=== PATIENT | male | born 1955 | race Caucasian/White ===

== ENCOUNTER 2022-01-22 17:16 | Emergency (ER) | payer MEDICARE ==
[~2022-01-22] VITALS: Ht 160 cm; Wt 84.8 kg
[2022-01-22 17:41] VITALS: BP 207/148
--- NOTE | 2022-01-22 18:05 | NUR ---
66/M WITH C/O URINE RETENTION TODAY. PATIENT REPORTS HX OF PROSTATE CANCER AND STATES HE HAD A PERES IN PLACE X1 MONTH. STATES HE TOLD HIS UROLOGIST TO HAVE IT REMOVED AND HAS RETAINED URINE SINCE. PATIENT REPORTS 10/10 PAIN AND STATES ABDOMEN IS TENDER TO TOUCH. PATIENT DENIES N/V/D, FEVERS, CHILLS, PATIENT IS DIAPHORETIC UPON ARRIVAL TO ED.
--- NOTE | 2022-01-22 18:31 | NUR ---
Patient discharged with v/s stable. Written and verbal after care instructions ABOUT ACUTE URINARY RETENTION given and explained. Patient verbalized understanding. Ambulatory with steady gait. All questions addressed prior to discharge. Advised to follow up with PMD.
== END 2022-01-22 18:31 | disposition home or self-care (01) ==
LOC: MED 17:16
DX: R33.9 Retention of urine, unspecified (principal); Z85.46 Personal history of malignant neoplasm of prostate
CPT/HCPCS: 51702; 99284

== ENCOUNTER 2022-04-04 05:59 | Emergency (ER) | payer MEDICARE, OTHER ==
[~2022-04-04] VITALS: Ht 160 cm; Wt 89.4 kg
[2022-04-04 06:20] VITALS: BP 145/95
[2022-04-04] MEDS ORDERED: HYDROcodone/APAP 5/325 MG 1 TAB TAB PO ONE (07:05)
--- NOTE | 2022-04-04 07:48 | NUR ---
PT AMBULATED TO BED 2 WITH STEADY GAIT
--- NOTE | 2022-04-04 07:48 | NUR ---
NO URINE NOTED IN LEG BAG
[2022-04-04 08:13] LABS: BASOPHILS # (AUTO) 0.1 K/uL (0.00-0.22); BASOPHILS % (AUTO) 1.2 % (0.0-2.0); EOSINOPHILS # (AUTO) 0.6 K/uL (0-0.4); EOSINOPHILS % (AUTO) 5.8 % (0.0-4.0); HEMATOCRIT 45.6 % (36-52); HEMOGLOBIN 15.6 g/dL (12.0-18.0); LYMPHOCYTES # (AUTO) 2.5 K/uL (2.0-11.5); LYMPHOCYTES % (AUTO) 24.3 % (20.5-51.1); MEAN CORPUSCULAR HEMOGLOBIN 31 pg (27-31); MEAN CORPUSCULAR HGB CONC 34 g/dL (33-37); MEAN CORPUSCULAR VOLUME 91.7 fL (80-94); MONOCYTES # (AUTO) 1.2 K/uL (0.8-1.0); NEUTROPHILS % (AUTO) 57.7 % (42.2-75.2); PLATELET COUNT (AUTO) 482 K/uL (140-450); RED BLOOD CELL COUNT(AUTO) 4.97 MIL/uL (4.20-6.10); WHITE BLOOD COUNT (AUTO) 10.5 K/uL (4.8-10.8)
[2022-04-04 08:21] LABS: ALBUMIN 3.6 g/dL (3.4-5.0); ANION GAP 14.7 (8-16); CARBON DIOXIDE 26.3 mmol/L (21-32); TOTAL BILIRUBIN 0.4 mg/dL (0.0-1.0)
--- NOTE | 2022-04-04 08:27 | NUR ---
66YR OLD MALE BIB SELF C/O PENILE PAIN. PT HAD A LEG PERES CATH PLACED 2DAYS AGO. S/P PROSTATE SURGERY PROSTATE CA. PAIN LEVEL 10/10 . URINE RED CHELI HAZY. URINE DIP COLLECTED AND URINE SENT TO LAB. SURGERY 2 WEEKS AGO ON PROSTATE. PT IS A&OX4 BELARUSIAN SPEAKING. SKIN WARM PINK AND DRY. HOB ELEVATED. SIDE RAILS UP X2. BED AT LOWEST POSITION NKDA HTN DM PROSTATE CA
--- NOTE | 2022-04-04 09:31 | NUR ---
REPLACEMENT OF PERES CATH COMPLETED. 18FR COUDE CATH. PT TOLERATED WELL.
--- NOTE | 2022-04-04 09:40 | NUR ---
SECOND URINE SAMPLE COLLECTED AND SENT TO LAB
[2022-04-04 09:53] LABS: APPEARANCE,URINE CLOUDY (CLEAR); COLOR,URINE BLOODY (YELLOW)
[2022-04-04 09:54] LABS: BILIRUBIN,URINE 1+ (NEGATIVE); BLOOD, URINE 4+ (NEGATIVE); UGLUCOSE NEGATIVE (NEGATIVE)
[2022-04-04] MEDS ORDERED: MORPHINE SULFATE 4 MG/ML SYR IM ONE (10:10)
[2022-04-04 10:12] LABS: RBC,URINE >100 /HPF (0-5); WBC,URINE 20-60 /HPF (0-5)
[2022-04-04 10:13] LABS: LEUKOCYTE ESTERASE ,URINE 3+ (NEGATIVE); NITRITE, URINE POSITIVE (NEGATIVE)
--- NOTE | 2022-04-04 10:55 | NUR ---
PT PAIN LEVEL 0/10. PT IS RESTING IN BED. URINE EMPTY FROM PERES CATH. RESP EVEN AND UNLABORED. HOB ELEVATED. BED AT LOWEST POSITION.
[2022-04-04] MEDS ORDERED: cefTRIAXone 1,000 MG VIAL ONE (11:10)
[2022-04-04] MEDS ORDERED: CEPH-588 PO (11:30)
[2022-04-04 12:00] VITALS: BP 147/91
--- NOTE | 2022-04-04 12:00 | NUR ---
Note [email or web address] in EDM - 04/04/22 at 1229 by GARCIAPM Patient discharged with v/s stable. Written and verbal after care instructions given and explained. Patient alert, oriented and verbalized understanding of instructions. Ambulatory with steady gait. All questions addressed prior to discharge. ID band removed. Patient advised to follow up with PMD. Rx of KEFLEX given. Patient educated on indication of medication including possible reaction and side effects. Opportunity to ask questions provided and answered.
--- NOTE | 2022-04-04 12:36 | NUR ---
Chart checked and completed. The patient's care was reviewed and supervised by Shea Prieto RN.
== END 2022-04-04 12:00 | disposition home or self-care (01) ==
LOC: MED 05:59
DX: N39.0 Urinary tract infection, site not specified (principal); Z85.46 Personal history of malignant neoplasm of prostate
CPT/HCPCS: 36415; 51702; 74176; 80053; 81001; 85025; 87040; 87086; 96365; 96372; 99285; J0696; J2270